=== PATIENT | male | born 1995 | race Hispanic/Latino ===

== ENCOUNTER 2022-11-21 11:59 | Emergency (ER) | payer SELFPAY ==
[2022-11-21] MEDS ORDERED: predniSONE 20 MG TAB ONE (12:29)
[2022-11-21 13:22] LABS: SARS-CoV-2 NAA Rapid Test Not Detected (NotDetected)
[2022-11-21 13:57] LABS: Bilirubin Negative (Negative); Blood, Urine Negative (Negative); Clarity Clear (Clear); Glucose, Urine (Dipstick) Normal (Negative); Ketone, Urine Negative (Negative); Leukocyte Negative Leu/uL (Negative); Nitrite Negative (Negative); Protein, Urine (Dipstick) Negative (Neg-Trace); Specific Gravity, Urine 1.005 (1.002-1.036); Urobilinogen Normal mg/dL (Less than 2)
[2022-11-21 23:43] LABS: Chlam.trachomatis by PCR,Urine Not Detected (NotDetected); GC N.gonorrhoeae PCR,UrineVOID Not Detected (NotDetected)
== END 2022-11-21 13:25 | disposition home or self-care (01) ==
LOC: ERS 11:59
DX: K92.1 Melena (principal); R21 Rash and other nonspecific skin eruption; Z20.822 Contact with and (suspected) exposure to COVID-19
CPT/HCPCS: 81003; 87491; 87591; 99284; J7512

== ENCOUNTER 2022-11-28 15:39 | Emergency (ER) | payer SELFPAY ==
[2022-11-28] MEDS ORDERED: Ketorolac Tromethamine 30 MG/ML VIAL ONE (18:13)
== END 2022-11-28 18:58 | disposition home or self-care (01) ==
LOC: ERS 15:39
DX: M54.6 Pain in thoracic spine (principal); R07.9 Chest pain, unspecified
CPT/HCPCS: 71045; 93005; 96372; J1885